=== PATIENT | female | born 2000 | race Caucasian/White ===

== ENCOUNTER 2019-05-03 22:47 | Emergency (ER) | END 2019-05-03 23:11 | disposition home or self-care (01) | LOC: FER 22:47 ==

== ENCOUNTER 2020-08-31 19:14 | Emergency (ER) | payer OTHER ==
--- OUTSIDE RECORDS SUMMARY | 2020-08-31 19:17 | XMS ---
:[address] [facility] Care Team Providers Name Role Phone Elfego Marquez MD Unavailable Unavailable Re-disclosure Warning The records that you are about to access may contain information from federally- assisted alcohol or drug abuse programs. If such information is present, then the following federally mandated warning applies: This information has been disclosed to you from records protected by federal confidentiality rules (42 CFR part 2). The federal rules prohibit you from making any further disclosure of this information unless further disclosure is expressly permitted by the written consent of the person to whom it pertains or as otherwise permitted by 42 CFR part 2. A general authorization for the release of medical or other information is NOT sufficient for this purpose. The Federal rules restrict any use of the information to criminally investigate or prosecute any alcohol or drug abuse patient.The records that you are about to access may contain highly sensitive health information, the redisclosure of which is protected by Article 27-F of the [facility] Public Health law. If you continue you may haveaccess to information: Regarding HIV / AIDS; Provided by facilities licensed or operated by the [facility] Office of Mental Health; or Provided by the [facility] Office for People With Developmental Disabilities. If such information is present, then the following [facility] mandated warning applies: This information has been disclosed to you from confidential records which are protected by state law. State law prohibits you from making any further disclosure of this information without the specific written consent of the person to whom it pertains, or as otherwise permitted by law. Any unauthorized further disclosure in violation of state law may result in a fine or usp sentence or both. A general authorization for the release of medical or other information is NOT sufficient authorization for further disclosure. Allergies and Adverse Reactions Type Description Substance Reaction Status Data Source(s ) Drug allergy No Known Allergies No Known Allergies none [facility] Encounters Encounter Providers Location Date Indications Data Source(s ) Outpatient Attender: Elfego 05/21/2020 RECTAL BLEED [place] Jimmy SOLOMON 02:30:00 PM Hospital EDT - 05/21/2020 01:44:00 PM EDT RECT[facility] BLEED Patient discharged. Insurance Providers Payer name Policy Policy ID Covered Covered Policy Plan Info rmation type / democrat ID [employer] [place] Coverage relationship type to [place] SELF PAY SP INSURANCE ODUM [id number] PT [id number] [address] [facility] [id number] PT [id number] 300 [facility] [id number] SP [id number] PENDING [id number] SP [id number] WC/NF ONLY MVP [id number] SP [id number] MEDICAID HMO Results ID Date Data Source [id number] 05/21/2020 01:50:00 PM EDT [facility] Name Value Range Interpretation Description Data Sup porting Code Source(s) Document(s ) Choriogonadotropin NEGATIVE [place] ( test) [place] [Presence] in Urine Hospital Procedure Vital Signs ID Date Data Source UNK Name Value Range Interpretation Code Description Data Source(s) Diastolic blood 57 mm[Hg] 57 mm[Hg] [facility] Systolic blood 93 mm[Hg] 93 mm[Hg] [facility] [place] [facility] Respiratory rate 16 /min 16 /min [facility] Heart rate 62 /min 62 /min [facility] Body temperature 36.82433 [place] 36.82143 [facility] Body temperature 98.4 [degF] 98.4 [degF] [facility] Body mass index 24.8 kg/m2 24.8 kg/m2 [facility] ins (BMI) [Ratio] Hospital Body weight 123 [lb_av] 123 [lb_av] [facility]
--- NOTE | 2020-08-31 20:28 | TELE ---
HPI Do you have fever,cough or shortness of breath?: No - General History Source: Patient Exam Limitations: No Limitations - History of Present Illness 08/31/20 20:24 Patient is a 20-year-old female who participated in a virtual urgent care visit for request of routine cover testing and covered antibodies. The patient states there was a cluster of patients recently in her neighborhood and she would like to get tested. 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 She has had multiple COVID contacts but never without PPE. The patient denies any symptoms at all. She denies any recent travel outside of the within the last 30 days or outside of [facility] within the last 14. She has a history of hyperlipidemia but is not medicated. She states her father is immunocompromised and she would just like to know if she is positive. Please note: That this virtual urgent care visit was done via audio only as the patient was having technical difficulties accessing the video portion of the visit. Past History - Medical History Allergies/Adverse Reactions: Allergies Allergy/AdvReac Type Severity Reaction Status Date / Time No Known Allergies Allergy Unverified 05/03/19 22:50 Home Medications: Ambulatory Orders NK [No Known Home Medication] 05/03/19 COPD: No Hypercholesterolemia: Yes - Psycho-Social/Smoking History Smoking History: Unknown if ever smoked Have you smoked in the past 12 months: No Number of Cigarettes Smoked Daily: 0 Review of Systems - Review of Systems Comments:: 08/31/20 20:26 - Review of Systems Able to Perform ROS?: Yes Constitutional: No: Fever, Chills, Loss of Appetite, Night Sweats, Weakness; positive: Routine cover testing HEENTM: No: Eye Pain, Vision changes, Ear Pain, Throat Pain, Throat Swelling, Mouth Pain, Difficulty Swallowing Respiratory: No: Cough, Shortness of Breath, Wheezing, Sputum Production Cardiac (ROS): No: Chest Pain, Chest Tightness, Palpitations, Irregular Heart Beat, Edema ABD/GI: No: Nausea, Vomiting, Abdominal Pain, Diarrhea : No Dysuria, No Hematuria, No Frequency, No Urgency Musculoskeletal: No: Muscle Pain, Back Pain, Joint Pain, Muscle Weakness, Neck Pain Integumentary: No: Lesions, Rash Neurological: No: Headache, Numbness, Tingling, Weakness, Speech Difficulties *Physical Exam - Physical Exam 08/31/20 20:26 - Physical Exam HEENT:Normal Voice, Hearing Grossly Normal Respiratory/Chest: Speaking in full and complete sentences Neurologic: Fully Oriented, Alert, Normal Mood/Affect, Normal Response - Medical Decision Making 08/31/20 20:26 Assessment: Patient is a 20-year-old female who participated in a virtual urgent care visit for routine covid testing and antibody testing. Plan: -COVID swab and SARS antibodies ordered -Patient to proceed to the [facility] for testing -COVID counseling given, isolation precautions reviewed -Patient understands and agrees with this treatment plan Discharge Diagnosis at time of Disposition: Counseled about COVID-19 virus infection - Referrals - Patient Instructions Discharge Instructions: [facility]-Coronavirus Instructions, [facility] COVID-19 Isolation Protocol Additional Discharge Instructions: You were seen via a telehealth visit and tested for COVID today. You should follow isolation precautions as per [facility] guidelines. Thank you for participating in our telehealth medicine program. If you have any worsening symptoms such as high fever, shaking chills, profuse vomiting or any other worsening symptoms you should go to your local emergency department immediately or follow up with your primary care doctor immediately. If you become symptomatic: Take Tylenol 650 mg every 6 hours as needed for fever or pain. You may take Robitussin or other [id number] cough syrup. Follow the dosing instructions on the bottle. Warm tea, honey, and salt water gargles may help your symptoms. Please take precautions and self quarantine for 2 weeks and follow-up with your primary care doctor and the Department of Health. Return to the nearest emergency department for shortness of breath, difficulty breathing, chest pain, or if you have any changes in your symptoms. - Discharge Disposition: HOME Condition at time of Disposition: Stable
== END 2020-08-31 20:28 | disposition home or self-care (01) ==
LOC: JVIRT 19:14
DX: Z03.818 Encounter for observation for suspected exposure to other biological agents ruled out (principal); Z01.84 Encounter for antibody response examination
CPT/HCPCS: 36415; 86769; 99441-95; C9803; U0003

== ENCOUNTER 2021-11-15 19:24 | Emergency (ER) | payer OTHER | END 2021-11-15 19:56 | disposition home or self-care (01) | LOC: JVIRT 19:24 | DX: Z20.822 Contact with and (suspected) exposure to COVID-19 (principal) | CPT/HCPCS: C9803; Q3014-GT; U0003; U0005 ==